=== PATIENT | female | born 1955 | race Caucasian/White ===

== ENCOUNTER 2018-09-16 07:37 | Inpatient (IN) ==
--- NOTE | 2018-09-16 08:04 | ED ---
HPI General Chief Complaint: Psychiatric Symptoms Stated Complaint: Psych eval / DBPD Time Seen by Provider: 09/16/18 07:42 Source: patient and EMS Mode of arrival: EMS Limitations: no limitations History of Present Illness HPI Narrative: Patient is a 63-year-old female, past medical history significant for thyroid disease, schizoaffective disorder, who presents after an intentional overdose. She recently lost her significant other and took approximately 10 - 50 mg Seroquel tablets approximately 1 1/2-2 hours prior to arrival in an attempt to kill herself. Police placed her on a Hernandez act and states that she was complaining of dizziness on their arrival. She denies any symptoms at this time. She denies any other coingestants. complaint: Reports suicidal ideation Onset (ago): hour(s) Duration: constant Relieving factors: none Context: Reports significant life stressor Associated psychiatric symptoms: Reports depression and suicidal ideation Associated symptoms: Reports denies other symptoms Treatments prior to arrival: Reports placed on mental health hold If self harm: admits thoughts of self harm, has acted on plan and intentional overdose Related Data Home Medications Medication Instructions Recorded Confirmed haloperidol lactate [Haldol] 5 mg BID 08/09/18 09/16/18 levothyroxine 88 mcg PO DAILY 08/09/18 09/16/18 quetiapine [Seroquel] 50 mg PO HS 08/09/18 09/16/18 Previous Rx's Medication Instructions Recorded psyllium husk [Metamucil] 1 tbsp PO DAILY #660 g 08/09/18 Allergies Allergy/AdvReac Type Severity Reaction Status Date / Time amoxicillin Allergy Mild Shortness Verified 08/09/18 08:12 of Breath Review of Systems ROS: all other systems reviewed are negative FOR[facility] Medical History Medical History Bipolar 1 disorder (Acute) Depressed affect (Acute) GERD (gastroesophageal reflux disease) (Acute) Hemorrhoids (Acute) Schizo affective schizophrenia (Acute) Thyroid disease (Acute) Surgical History Surgical History No history of previous surgery (Acute) Social History Social History Substance History: No History of Abuse Second Hand Smoke Exposure: No Smoking Status: Never smoker Tobacco Type: Cigarettes How Often Do You Have a Drink Containing Alcohol: Never Recent Travel in [facility] within the Last 8 Weeks: No Recent Out of Country Travel within the Last 8 Weeks: No Exam Narrative Exam Narrative: GENERAL: Well-appearing female in no acute distress; bug ( possibly bed bug?) found on her leg. SKIN: Focused skin assessment warm/dry. No rashes. Several large moles to back. HEAD: Atraumatic. Normocephalic. EYES: Pupils equal and round. No scleral icterus. No injection or drainage. ENT: No nasal bleeding or discharge. Mucous membranes pink and moist. NECK: Trachea midline. No JVD. CARDIOVASCULAR: Regular rate and rhythm. No murmur appreciated. Intact and equal peripheral pulses. RESPIRATORY: No accessory muscle use. Clear to auscultation. Breath sounds equal bilaterally. GASTROINTESTINAL: Abdomen soft, non-tender, nondistended. Hepatic and splenic margins not palpable. MUSCULOSKELETAL: No obvious deformities. No clubbing. No cyanosis. No edema. NEUROLOGICAL: Awake and alert. No obvious cranial nerve deficits. Motor grossly within normal limits. Normal speech. PSYCHIATRIC: Appropriate mood and affect; insight and judgment normal. Course Initial Documented Vital Signs Temperature 98.6 F 09/16/18 07:51 Pulse Rate 95 H 09/16/18 07:51 Respiratory Rate 18 09/16/18 07:51 Blood Pressure 130/70 09/16/18 07:51 Pulse Oximetry 95 09/16/18 07:51 Last Documented Vital Signs Temperature 96.6 F L 09/18/18 06:00 Pulse Rate 83 09/18/18 06:00 Respiratory Rate 18 09/18/18 06:00 Blood Pressure 139/75 09/18/18 06:00 Pulse Oximetry 95 09/18/18 06:00 Medical Decision Making [facility] Narrative Medical decision making narrative: Patient is a 63-year-old female who presents after an intentional Seroquel ingestion. She is asymptomatic on arrival and QTC was 404. EKG was repeated 2 hours later and QTC was 402. She has been kept on the monitoring analyst for 6 hours per poison control and continues to remain asymptomatic and appear well. She has been medically cleared to be seen by psychiatry. Medical Screen Exam Complete: Yes Emergency Medical Condition: Yes Differential Diagnosis Differential Diagnosis: Differential diagnosis includes but is not limited to overdose, dysrhythmia, depression. Medical Records Medical records reviewed: Yes I reviewed the patient's medical records. Lab Data Result diagrams: 09/16/18 08:09 09/17/18 05:58 Lab Results 09/16/18 09/16/18 09/16/18 Range/Units 08:09 08:09 08:09 WBC 5.4 (4.0-11.0) th/mm3 RBC 4.18 (4.00-5.30) mil/mm3 Hgb 10.9 L (11.6-15.3) gm/dL Hct 33.6 L (35.0-46.0) % MCV 80.4 (80.0-100.0) fL MCH 26.1 L (27.0-34.0) pg MCHC 32.5 (32.0-36.0) % RDW 15.1 (11.6-17.2) % Plt Count 289 (150-450) th/mm3 MPV 8.2 (7.0-11.0) fL Neut % (Auto) 78.5 H (16.0-70.0) % Lymph % (Auto) 12.5 (9.0-44.0) % [place] % (Auto) 7.0 (0.0-8.0) % Eos % (Auto) 1.5 (0.0-4.0) % Baso % (Auto) 0.5 (0.0-2.0) % Neut # (Auto) 4.2 (1.8-7.7) th/mm3 Lymph # (Auto) 0.7 L (1.0-4.8) th/mm3 [place] # (Auto) 0.4 (0.0-0.9) th/mm3 Eos # (Auto) 0.1 (0.0-0.4) th/mm3 Baso # (Auto) 0.0 (0.0-0.2) th/mm3 WBC Differential . Differential Comment Auto diff final Sodium 132 L (136-145) meq/L Potassium 3.9 (3.5-5.1) meq/L Chloride 100 (98-107) meq/L Carbon Dioxide 25.9 (21.0-32.0) meq/L Anion Gap 6 (5-15) meq/L BUN 5 L (7-18) mg/dL Creatinine 0.73 (0.50-1.00) mg/dL Estimated GFR 80 L (>89) mL/min Random Glucose 105 (74-106) mg/dL Hemoglobin A1c (4.3-6.0) % Calcium 8.3 L (8.5-10.1) mg/dL Magnesium 2.1 (1.5-2.5) mg/dL Total Bilirubin 0.2 (0.2-1.0) mg/dL AST 16 (15-37) U/L ALT 19 (10-53) U/L Alkaline Phosphatase 138 H (45-117) U/L Total Protein 6.9 (6.4-8.2) g/dL Albumin 3.2 L (3.4-5.0) g/dL Triglycerides (42-150) mg/dL Cholesterol (120-200) mg/dL LDL Cholesterol, Calc (0-99) mg/dL HDL Cholesterol (40.0-60.0) mg/dL Cholesterol/HDL Ratio Ratio TSH 2.350 (0.358-3.740) uIU/mL Salicylates Less than 1.7 L (2.8-20.0) mg/dL Acetaminophen Less than 2.0 L (10.0-30.0) mcg/mL Serum Alcohol Less than 3 (0-5) mg/dL 09/17/18 09/17/18 Range/Units 05:58 05:58 WBC (4.0-11.0) th/mm3 RBC (4.00-5.30) mil/mm3 Hgb (11.6-15.3) gm/dL Hct (35.0-46.0) % MCV (80.0-100.0) fL MCH (27.0-34.0) pg MCHC (32.0-36.0) % RDW (11.6-17.2) % Plt Count (150-450) th/mm3 MPV (7.0-11.0) fL Neut % (Auto) (16.0-70.0) % Lymph % (Auto) (9.0-44.0) % [place] % (Auto) (0.0-8.0) % Eos % (Auto) (0.0-4.0) % Baso % (Auto) (0.0-2.0) % Neut # (Auto) (1.8-7.7) th/mm3 Lymph # (Auto) (1.0-4.8) th/mm3 [place] # (Auto) (0.0-0.9) th/mm3 Eos # (Auto) (0.0-0.4) th/mm3 Baso # (Auto) (0.0-0.2) th/mm3 WBC Differential Differential Comment Sodium 133 L (136-145) meq/L Potassium 3.9 (3.5-5.1) meq/L Chloride 103 (98-107) meq/L Carbon Dioxide 23.6 (21.0-32.0) meq/L Anion Gap 6 (5-15) meq/L BUN 8 (7-18) mg/dL Creatinine 0.68 (0.50-1.00) mg/dL Estimated GFR 87 L (>89) mL/min Random Glucose 91 (74-106) mg/dL Hemoglobin A1c 5.3 (4.3-6.0) % Calcium 8.4 L (8.5-10.1) mg/dL Magnesium (1.5-2.5) mg/dL Total Bilirubin (0.2-1.0) mg/dL AST (15-37) U/L ALT (10-53) U/L Alkaline Phosphatase (45-117) U/L Total Protein (6.4-8.2) g/dL Albumin (3.4-5.0) g/dL Triglycerides 75 (42-150) mg/dL Cholesterol 155 (120-200) mg/dL LDL Cholesterol, Calc 69 (0-99) mg/dL HDL Cholesterol 71.3 H (40.0-60.0) mg/dL Cholesterol/HDL Ratio 2.17 Ratio TSH (0.358-3.740) uIU/mL Salicylates (2.8-20.0) mg/dL Acetaminophen (10.0-30.0) mcg/mL Serum Alcohol (0-5) mg/dL ECG Data EKG Prior to Arrival: No Attestation: I personally reviewed and interpreted this ECG as follows: (Sinus rhythm at a rate of [address] or T wave changes. QTC is 404.) Discharge Plan Discharge Disposition Patient Disposition: Sign Out(ED Internal Use Only) Discharge Condition Condition: Stable Discharge Order Discharge Orders: ED Use Only Admit Order (Routine); Ordered 09/16/18 Ordered By: Alexa Osorio Discharge Details Diagnosis: Suicide attempt by drug ingestion Physicians Team ED Provider: Enriqueta Hernandez Primary Care Provider: Cesar Cole Attending Provider: Robbin Sneed Other Providers: CIRA Herrmann [facility] ; Dutsin Tapia ED Status: Left Department Discharge Information Discharge Date/Time: 09/16/18 18:09
[2018-09-16 08:23] LABS: Baso % (Auto) 0.5 % (0.0-2.0); Eos # (Auto) 0.1 th/mm3 (0.0-0.4); Eos % (Auto) 1.5 % (0.0-4.0); Hematocrit 33.6 % (35.0-46.0); Hemoglobin 10.9 gm/dL (11.6-15.3); Lymph # (Auto) 0.7 th/mm3 (1.0-4.8); Lymph % (Auto) 12.5 % (9.0-44.0); Mean Corpuscular HGB Conc 32.5 % (32.0-36.0); Mean Corpuscular Hemoglobin 26.1 pg (27.0-34.0); Mean Corpuscular Volume 80.4 fL (80.0-100.0); Mean Platelet Volume 8.2 fL (7.0-11.0); Mono # (Auto) 0.4 th/mm3 (0.0-0.9); Neut # (Auto) 4.2 th/mm3 (1.8-7.7); Neut % (Auto) 78.5 % (16.0-70.0); Platelet Count 289 th/mm3 (150-450); Red Blood Count 4.18 mil/mm3 (4.00-5.30); Red Cell Distribution Width 15.1 % (11.6-17.2); White Blood Count 5.4 th/mm3 (4.0-11.0)
[2018-09-16 08:44] LABS: Alanine Aminotransferase 19 U/L (10-53); Albumin 3.2 g/dL (3.4-5.0); Anion Gap 6 meq/L (5-15); Aspartate Aminotransferase 16 U/L (15-37); Blood Urea Nitrogen 5 mg/dL (7-18); Calcium 8.3 mg/dL (8.5-10.1); Carbon Dioxide 25.9 meq/L (21.0-32.0); Chloride 100 meq/L (98-107); Glomerular Filtration Rate 80 mL/min (>89); Glucose,Random 105 mg/dL (74-106); Magnesium 2.1 mg/dL (1.5-2.5); Potassium 3.9 meq/L (3.5-5.1); Sodium 132 meq/L (136-145)
[2018-09-16 08:53] LABS: Alkaline Phosphatase 138 U/L (45-117); Total Protein 6.9 g/dL (6.4-8.2)
--- NOTE | 2018-09-16 16:03 | ECG ---
Date Performed: 09/16/2018 Time Performed: 07:51:28 PTAGE: 63 years EKG: Sinus rhythm BORDERLINE LEFT AXIS DEVIATION BORDERLINE ECG Compared to PREVIOUS TRACING , axis somewhat more leftward, otherwise no signficant change. PREVIOUS TRACIN08/09/2018 08.37 DOCTOR: Kang Luna Interpretating Date/Time 09/16/2018 16:02:17
--- NOTE | 2018-09-16 16:03 | ECG ---
Date Performed: 09/16/2018 Time Performed: 09:45:17 PTAGE: 63 years EKG: Sinus rhythm LOW QRS VOLTAGE IN PRECORDIAL LEADS BORDERLINE ECG Compared to PREVIOUS TRACING , QRS voltage somewhat smaller in precordial leads, axis no longer leftw emma. PREVIOUS TRACIN09/16/2018 07.51 DOCTOR: Kang Luna Interpretating Date/Time 09/16/2018 16:03:11
[2018-09-16] MEDS ORDERED: Acetaminophen 325 MG Tablet PO PRN (16:06)
[2018-09-16] MEDS ORDERED: Aluminum/Magnesium/Simethacone Susp 30 ML UDC PO PRN (16:06)
--- NOTE | 2018-09-16 17:16 | P.HPPSY ---
Provisional Diagnosis Admission Date: September 16, 2018 16:18 [place] I.: Major depressive disorder [place] II.: Suicide attempt Competence Certification of Person's Competence To Provide Express and Informed Consent I have personally examined Paula Palacios, a person being served at [facility] on, September 16, 2018 1714. Express and informed consent means consent voluntarily given in writing, by a competent person, after sufficient explanation and disclosure of the subject matter involved to enable the person to make a knowing and willful decision without any element of force, fraud, deceit, duress, or other form of constraint or coercion. This person is 18 years of age or older, is not now known to be incompetent to consent to treatment with a guardian advocate, and does not have a health care surrogate or proxy currently making medical treatment decisions. I have found this person to be one of the following: [] Competent to provide express and informed consent, as defined above, for voluntary admission to this facility and is competent to provide express and informed consent for treatment. He/she has the consistent capacity to make well reasoned, willful, and knowing decisions concerning his or her medical or mental health treatment. The person fully and consistently understands the purpose of the admission for examination/placement and is fully capable of personally exercising all rights assured under [place]xxx] Incompetent to provide express and informed consent to voluntary admission , and this is incompetent to provide express and informed consent to treatment. The person must be transferred to involuntary status and a petition for a guardian advocate filed with the Circuit Court. [] Refusing to provide express and informed consent to voluntary admission but is competent to provide express and informed consent for treatment. The person must be discharged or transferred to involuntary status. Form shall be completed within 24 hours of a person's arrival at the receiving facility and filed in the clinical record of each person: 1. Admitted on a voluntary basis 2. Permitted to provide express and informed consent to his/her own treatment 3. Allowed to transfer from involuntary to voluntary status 4. Prior to permitting a person to consent to his or her own treatment after having been previously found incompetent to consent to treatment. History of Present Illness Capacity: Lacks capacity Chief Complaint: Major depressive disorder. Attempted suicide by overdose History of Present Illness: This is a 63-year-old , female who presents under a police initiated Hernandez act to this facility for an attempted overdose with Seroquel. Patient is previously known to this facility but not to the psychiatric department. Reviewed electronic medical records, labs, discussed case with staff. Patient was evaluated in her room E 53. She is found lying on the bed clad in hospital gown. She is awake, alert, and oriented times self and place at least. There is no evidence of psychosis nor of es. I can elicit no delusional material. Her speech is very slightly slurred but, logical, of normal joceline and volume. She reports that she has been feeling depressed for approximately 2 weeks now. She states that she has been suffering with insomnia but reports having a good appetite, denies anhedonia, and reports having good energy level. When asked why she took an overdose of medications she responds "I was overwhelmed I guess". She reports that recently she was given a diagnosis of stage I colon cancer. She reports that her older brother from bone cancer so this has been particularly stressful to her. She also states that recently she discovered her had lost his job. She is currently denying suicidal and homicidal ideation as well as auditory or visual hallucinations. She states that she was hospitalized "a long time ago". She denies any previous history of self-harm. She states that she is treated outpatient at [facility] for schizoaffective disorder. She reports that she is typically compliant with her medications. She states that she lives at home with her ON and they have 1 grown son who does not live in the house. 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 She denies smoking cigarettes, drinking alcohol, or abusing illicit drugs. She denies owning firearms. She denies any previous admissions for rehab or detox. Her medical history is significant for hypothyroidism, GERD, and the aforementioned colon cancer. She states that her next oncology appointment with Dr. Kat is September 23. - Inpatient Certification I certify that the inpatient services were ordered in accordance with Medicare regulations governing the order. This includes certification that hospital inpatient services are reasonable and necessary and in the case of services not specified as inpatient-only under 42 CFR 419.22(n), that they are appropriately provided as inpatient services in accordance to with the 2-midnight benchmark under 43 CFR 412.3(e) I certify that inpatient psychiatric hospital services are medically necessary. Evaluation and treatment and/or diagnostic testing are expected to improve the patient's condition. The patient needs on a daily basis, active treatment furnished directly by or requiring the supervision of inpatient psychiatric facility personnel. Estimated Total Length of Stay (Days): 7 Plans for Post Hospital Care: Home Review of Systems All other systems reviewed negative except as stated in HPI [facility] - History History Provided By: Patient - Medical History Medical History: Medical History (Last Reviewed 09/16/18 @ 17:21 by JIM Leblanc) Bipolar 1 disorder Depressed affect GERD (gastroesophageal reflux disease) Hemorrhoids Schizo affective schizophrenia Thyroid disease - Surgical History Surgical History: Surgical History (Last Reviewed 09/16/18 @ 17:21 by JIM Leblanc) No history of previous surgery - Tobacco History Second Hand Smoke Exposure: No Tobacco Use In Past 30 Days: No Smoking Status: Never smoker Tobacco Type: Cigarettes - Alcohol History How Often Do You Have a Drink Containing Alcohol: Monthly or less - Substance Use History Substance History: No History of Abuse - Travel History Recent Travel in the [place] Within the Last 8 Weeks: No Recent Travel Out of the Country Within the Last 8 Weeks: No - Immunization History Tetanus Immunization: Unsure Quality Measures - Psychiatric History Psychological trauma history: Denies Violence risk to others in the last 6 months: Denies Violence risk to self in the last 6 months: Denies - Substance Abuse History Drug or alcohol use in the past 12 months: Denies - Patient Strengths Patient's strengths (minimum of 2): Patient apparently has a strong report system in her family and seems fairly shocked at her own actions. Medications and Allergies Active Medications: Active Medications Acetaminophen (Tylenol) 650 mg PO Q4H PRN PRN Reason: Pain 1-5 or Temp >101F Al Hydrox/Mg Hydrox/Simethicone (Mag-Al Plus Susp Liq) 30 ml PO Q6H PRN PRN Reason: DYSPEPSIA Al Hydroxide/Mg Hydroxide (Milk Of Magnesia Liq) 30 ml PO Q12H PRN PRN Reason: Mild Constipation Allergies Allergy/AdvReac Type Severity Reaction Status Date / Time amoxicillin Allergy Mild Shortness Verified 08/09/18 08:12 of Breath Home Medications Medication Instructions Recorded Confirmed Type haloperidol lactate [Haldol] 5 mg BID 08/09/18 09/16/18 History levothyroxine 88 mcg PO DAILY 08/09/18 09/16/18 History quetiapine [Seroquel] 50 mg PO HS 08/09/18 09/16/18 History Results - Labs CBC & Chem 7: 09/16/18 08:09 09/16/18 08:09 Labs: Laboratory Results - last 24 hr 09/16/18 09/16/18 09/16/18 08:09 08:09 08:09 WBC 5.4 RBC 4.18 Hgb 10.9 L Hct 33.6 L MCV 80.4 MCH 26.1 L MCHC 32.5 RDW 15.1 Plt Count 289 MPV 8.2 Neut % (Auto) 78.5 H Lymph % (Auto) 12.5 [place] % (Auto) 7.0 Eos % (Auto) 1.5 Baso % (Auto) 0.5 Neut # (Auto) 4.2 Lymph # (Auto) 0.7 L [place] # (Auto) 0.4 Eos # (Auto) 0.1 Baso # (Auto) 0.0 WBC Differential . Differential Comment Auto diff final Sodium 132 L Potassium 3.9 Chloride 100 Carbon Dioxide 25.9 Anion Gap 6 BUN 5 L Creatinine 0.73 Estimated GFR 80 L Random Glucose 105 Calcium 8.3 L Magnesium 2.1 Total Bilirubin 0.2 AST 16 ALT 19 Alkaline Phosphatase 138 H Total Protein 6.9 Albumin 3.2 L TSH 2.350 Salicylates Less than 1.7 L Acetaminophen Less than 2.0 L Serum Alcohol Less than 3 Exam Vital signs: Vital Signs 09/16/18 07:51 09/16/18 11:00 09/16/18 14:01 Temperature 98.6 F 98.5 F 98.6 F Pulse Rate 95 H 85 93 H Respiratory Rate 18 18 18 Blood Pressure 130/70 125/66 119/78 Pulse Oximetry 95 94 L 96 Intake & Output 09/15/18 09/16/18 09/16/18 18:59 06:59 18:59 Weight 192 lb - Constitutional no acute distress, mild distress - Routine HEENT Exam Head: Present: normocephalic, atraumatic - Routine Neurological Exam Present: alert, oriented X3 - Routine Psychiatric Exam Present: suicidal ideation, depressed Mental Status Examination Appearance: Disheveled Consciousness: Alert Orientation: Person, Place (At least) Motor Activity: Other (In bed) Speech: Unremarkable (A little slurred) Language: Adequate Fund of Knowledge: Inadequate Attention and Concentration: Adequate Memory: Unremarkable Mood: Sad Affect: Sad Thought Process & Associations: Intact, Logical Thought Content: Appropriate Hallucination Type: None Delusion Type: None Suicidal Ideation: No (Currently is denying) Suicidal Plan: No Suicidal Intention: No Homicidal Ideation: No Homicidal Plan: No Homicidal Intention: No Insight: Fair Judgment: Impulsive Assessment and Plan - Assessment (1) Major depressive disorder Code(s): F32.9 - Major depressive disorder, single episode, unspecified Status : Acute - Plan Plan: Estimated LOS: [7] days given that this patient admits to taking an overdose of Seroquel in an attempt to end her life combined with her recent cancer diagnosis and her 's loss of job I am admitting her to a locked psychiatric inpatient unit for further evaluation and treatment as deemed necessary. Due to her Seroquel overdose I will not be initiating any psychotropics at this time. Justification for Continued Inpatient Stay: Moving this patient to a less restrictive environment would likely result in decompensation. (1) Major depressive disorder Qualifiers: Major depression recurrence: recurrent Active/Remission status: currently active Major depression episode severity: moderate Qualified Code(s): F33.1 - Major depressive disorder, recurrent, moderate
[2018-09-17 07:02] LABS: Calcium 8.4 mg/dL (8.5-10.1); Carbon Dioxide 23.6 meq/L (21.0-32.0); Potassium 3.9 meq/L (3.5-5.1)
[2018-09-17 07:05] LABS: Chol/HDL Ratio 2.17 Ratio; HDL Cholesterol 71.3 mg/dL (40.0-60.0)
[2018-09-17 11:37] LABS: Hemoglobin A1c 5.3 % (4.3-6.0)
[2018-09-17] MEDS: Melatonin 5 MG Tablet PO PRN (20:31)
--- NOTE | 2018-09-18 14:11 | P.PNPSY ---
Subjective Chief Complaint: Major depressive disorder. Attempted suicide by overdose Remarks: Patient was seen and case discussed with nursing. There does not appear to be a note from yesterday. An H&P was completed on September 16 and patient was made involuntary in the computer but no involuntary paperwork was filled out. Patient had a suicide attempt Via Seroquel. Patient remains depressed but minimizes her attempts. At this time she denies suicidal or homicidal ideation intent or plan. She is on precautions for bed bugs. Thought processes disorganized but no specific delusions were elicited Review of Systems All other systems reviewed negative except as stated in HPI Mental Status Examination Appearance: Disheveled Consciousness: Alert Orientation: Person, Place (At least) Motor Activity: Other (In bed) Speech: Unremarkable (A little slurred) Language: Adequate Fund of Knowledge: Inadequate Attention and Concentration: Adequate Memory: Unremarkable Mood: Sad Affect: Sad Thought Process & Associations: Disorganized Thought Content: Appropriate Hallucination Type: None Delusion Type: None Suicidal Ideation: No (Currently is denying) Suicidal Plan: No Suicidal Intention: No Homicidal Ideation: No Homicidal Plan: No Homicidal Intention: No Insight: Fair Judgment: Impulsive Assessment and Plan - Assessment (1) Schizophrenia, unspecified Code(s): F20.9 - Schizophrenia, unspecified Status: Acute - Plan Plan: Initial petition completed, consult placed for second opinion, was called and there was no answer Justification for Continued Inpatient Stay: Patient would decompensate in a less restrictive setting
[2018-09-18] MEDS: Haloperidol 5 MG Tablet PO SCH (22:15)
[2018-09-18] MEDS: Melatonin 5 MG Tablet PO PRN (22:15)
[2018-09-18] MEDS: traZODone 50 MG Tablet PO SCH (22:16)
[2018-09-19] MEDS: Haloperidol 5 MG Tablet PO SCH ×2 (09:10→20:52)
--- NOTE | 2018-09-19 16:27 | P.PNPSY ---
Subjective Chief Complaint: Major depressive disorder. Attempted suicide by overdose Remarks: Patient seen for follow-up, and a second opinion; chart reviewed, patient discussed with nursing staff, we reviewed the patient's mood, thoughts, and behaviors from overnight and this morning. Nurse reports the patient has been calm and cooperative with care and denies suicidal or homicidal ideations and denies auditory or visual hallucinations. The patient was seen at bedside this afternoon by psychiatry and was pleasant with interview. She adamantly denies recent suicidal behavior. She reports that she had claimed she took an overdose of the Seroquel but is now reporting that she lied in order to get attention for the anxiety she was experiencing. She reports having a very good visit with her today and he is supportive and not angry with her for recent behavior. Patient expressed positive motivation to return home so that she can be with family over the holidays. Patient expressed sincere motivation to continue her outpatient psychiatric care and follow-up with [facility]. The patient's spouse was seen during visitation hours and his 's condition discussed. Patient spouse reports that he is not concerned over recent threats of suicide and he would like her discharged home tonight. He expressed sincere motivation to ensure that she follows up with her outpatient provider and continues her outpatient medications. Patient spouse was informed that this late in the day a safe discharge had not yet been coordinated his will be reevaluated tomorrow morning and discharge considered at that time. Review of Systems All other systems reviewed negative except as stated in HPI Mental Status Examination Appearance: Appropriate Consciousness: Alert Orientation: x4 Motor Activity: Other (In bed) Speech: Unremarkable (A little slurred) Language: Adequate Fund of Knowledge: Adequate Attention and Concentration: Adequate Memory: Unremarkable Mood: Appropriate Affect: Appropriate Thought Process & Associations: Intact, Logical, Goal directed Thought Content: Appropriate Hallucination Type: None Delusion Type: None Suicidal Ideation: No (Currently is denying) Suicidal Plan: No Suicidal Intention: No Homicidal Ideation: No Homicidal Plan: No Homicidal Intention: No Insight: Fair Judgment: Impulsive Assessment and Plan - Assessment (1) Schizophrenia, unspecified Code(s): F20.9 - Schizophrenia, unspecified Status: Acute - Plan Plan: 09/18/2018 : initial petition completed, consult placed for second opinion, was called and there was no answer 09/19/2018: Good response to treatment, the patient's mood has been stable over the last 48 hours with no reports of auditory or visual hallucinations. The patient's thought processes were normal today with no signs of disorganization. Brief family meeting done with spouse at bedside during visiting hours and he is supportive of her discharge home and corroborates the patient's reports of making suicidal threats but not actually following through suicide attempt. The patient and spouse expressed sincere motivation to adhere to outpatient plans. Continue inpatient stabilization and treatment plan, working towards a safe discharge. There is no evidence on today's exam to suggest the patient is a substantial risk of self-harm if discharged to the care of her spouse therefore the second opinion for Hernandez act order 32 will not be placed. Recommend that patient be considered for voluntary status and anticipated for discharge tomorrow if she remains stable overnight. Justification for Continued Inpatient Stay: Patient remains an elevated risk for self-harm by self neglect and will require further inpatient stabilization and preparation of a safe discharge plan. Moving patient to a less restrictive environment at this time may result in decompensation.
[2018-09-19] MEDS: traZODone 50 MG Tablet PO SCH (20:52)
[2018-09-20 06:37] VITALS: BP 116/68; PULSE 96; RESP 18; TEMP 96.5; O2SAT 97
[2018-09-20] MEDS: Haloperidol 5 MG Tablet PO SCH (08:51)
--- NOTE | 2018-09-20 11:03 | P.DSPSY ---
Psychiatry Discharge Summary Inpatient Psychiatric care?: Yes Advance Directives: No Mental Health Advance Directive: No Health Care Proxy: No - Admission Admission Date: September 16, 2018 16:18 - Admission Diagnosis (1) Schizophrenia, unspecified Code(s): F20.9 - Schizophrenia, unspecified Brief History: This is a 63-year-old , female who presents under a police initiated Hernandez act to this facility for an attempted overdose with Seroquel. Patient is previously known to this facility but not to the psychiatric department. Reviewed electronic medical records, labs, discussed case with staff. Patient was evaluated in her room E 53. She is found lying on the bed clad in hospital gown. She is awake, alert, and oriented times self and place at least. There is no evidence of psychosis nor of es. I can elicit no delusional material. Her speech is very slightly slurred but, logical, of normal joceline and volume. She reports that she has been feeling depressed for approximately 2 weeks now. She states that she has been suffering with insomnia but reports having a good appetite, denies anhedonia, and reports having good energy level. When asked why she took an overdose of medications she responds "I was overwhelmed I guess". She reports that recently she was given a diagnosis of stage I colon cancer. She reports that her older brother from bone cancer so this has been particularly stressful to her. She also states that recently she discovered her had lost his job. She is currently denying suicidal and homicidal ideation as well as auditory or visual hallucinations. She states that she was hospitalized "a long time ago". She denies any previous history of self-harm. She states that she is treated outpatient at [facility] for schizoaffective disorder. She reports that she is typically compliant with her medications. She states that she lives at home with her ON and they have 1 grown son who does not live in the house. She states that she is a [id number] mom and . She denies smoking cigarettes, drinking alcohol, or abusing illicit drugs. She denies owning firearms. She denies any previous admissions for rehab or detox. Her medical history is significant for hypothyroidism, GERD, and the aforementioned colon cancer. She states that her next oncology appointment with Dr. Kat is September 23. Tobacco Use In Past 30 Days: No How Often Do You Have a Drink Containing Alcohol: Never Hospital Course: Hospital course: Patient was admitted to a locked, inpatient psychiatric unit. Appropriate precautions were in place throughout patient's hospital stay. Patient was seen and examined on the unit by psychiatry and also visited by counselor. Psychotropic medications were adjusted. There was a good response to treatment noted by nursing and provider observations, and the patient reported improvements in mood, anxiety, and there was no evidence of any suicidality or homicidality at time of discharge. Discharge and safety planning discussed with spouse. Psychiatric follow-up as arranged by counselor. Patient is also to follow up with primary care. I have counseled the patient to abstain from substances of abuse including cannabis and have counseled patient to return to the psychiatric emergency room for any concerning symptoms as part of a general safety plan. - Discharge Discharge Date: 09/20/18 - Discharge Diagnosis (1) Schizophrenia, unspecified Code(s): F20.9 - Schizophrenia, unspecified Status: Acute Discharge Disposition: Home - Discharge Instructions Discharge Diet: Regular Diet - Discharge Time > 30 minutes Mental Status Examination Appearance: Appropriate Consciousness: Alert Orientation: x4 Motor Activity: Other (In bed) Speech: Unremarkable (A little slurred) Language: Adequate Fund of Knowledge: Adequate Attention and Concentration: Adequate Memory: Unremarkable Mood: Appropriate Affect: Appropriate Thought Process & Associations: Intact, Logical, Goal directed Thought Content: Appropriate Hallucination Type: None Delusion Type: None Suicidal Ideation: No (Currently is denying) Suicidal Plan: No Suicidal Intention: No Homicidal Ideation: No Homicidal Plan: No Homicidal Intention: No Insight: Fair Judgment: Impulsive Discharge/Advance Care Plan - Results Vital Signs: Last Vital Signs Temp 96.5 F L 09/20/18 06:00 Pulse 96 H 09/20/18 06:00 Resp 18 09/20/18 06:00 BP 116/68 09/20/18 06:00 Pulse Ox 97 09/20/18 06:00 Lab Results: Laboratory Results Hemoglobin A1c 5.3 % (4.3-6.0) 09/17/18 05:58 Triglycerides 75 mg/dL (42-150) 09/17/18 05:58 Cholesterol 155 mg/dL (120-200) 09/17/18 05:58 LDL Cholesterol, Calc 69 mg/dL (0-99) 09/17/18 05:58 HDL Cholesterol 71.3 mg/dL (40.0-60.0) H 09/17/18 05:58 TSH 2.350 uIU/mL (0.358-3.740) 09/16/18 08:09 Summary of Procedures: None ordered Pending Results: None - Medications Number of antipsychotic medications at discharge: 1 - Discharge Care Plan Goals to Promote Your Health: * To prevent worsening of your condition and complications * To maintain your health at the optimal level Directions to Meet Your Goals: Take your medications as prescribed Follow your dietary instruction Follow activity as directed Keep your appointments as scheduled Take your immunizations and boosters as scheduled If your symptoms worsen call your PCP, if no PCP go to Urgent Care Center or Emergency Room For 20/04 questions related to your inpatient stay or results of tests pending at discharge, please contact Dr. Dustin Tapia MD at Smoking is Dangerous to Your Health. Avoid second hand smoking
== END 2018-09-20 12:50 | disposition home or self-care (01) ==
LOC: NEPE 07:37 → NEDA 16:18 → H250 17:54 → H4EA 09-17 01:00
PROVIDERS: ADMIT Psychiatry & Neurology Psychiatry; ATTEND Psychiatry & Neurology Psychiatry

== ENCOUNTER 2018-10-05 07:47 | Inpatient (IN) ==
--- NOTE | 2018-10-05 08:08 | ED ---
HPI General Chief Complaint: Overdose Stated Complaint: medical Time Seen by Provider: 10/05/18 07:54 Source: patient Mode of arrival: ambulatory Limitations: no limitations History of Present Illness HPI Narrative: Patient is a 63 year old female with history of depression, bipolar disorder, schizoaffective schizophrenia, presents the emergency room under a Hernandez act. Patient reports that she was depressed as she has financial difficulties, she is also recently diagnosed with colon cancer, reports that she took 10 of her 5 mg Seroquel pills around 7 AM in attempt to commit suicide. After she took the medications in attempt to overdose, she called PD for help. Related Data Home Medications Medication Instructions Recorded Confirmed levothyroxine 88 mcg PO DAILY 08/09/18 10/05/18 buspirone 10 mg PO BID 10/05/18 10/05/18 quetiapine [Seroquel] 50 mg PO BID 10/05/18 10/05/18 Previous Rx's Medication Instructions Recorded haloperidol 5 mg PO BID #7 tab 09/20/18 Allergies Allergy/AdvReac Type Severity Reaction Status Date / Time amoxicillin Allergy Mild Shortness Verified 10/05/18 07:56 of Breath Review of Systems ROS: all other systems reviewed are negative [facility] Medical History Medical History Bipolar 1 disorder (Acute) Depressed affect (Acute) GERD (gastroesophageal reflux disease) (Acute) Hemorrhoids (Acute) Schizo affective schizophrenia (Acute) Thyroid disease (Acute) Surgical History Surgical History No history of previous surgery (Acute) Social History Social History Substance History: No History of Abuse Second Hand Smoke Exposure: No Smoking Status: Never smoker Tobacco Type: Cigarettes How Often Do You Have a Drink Containing Alcohol: Never Recent Travel in [place] within the Last 8 Weeks: No Recent Out of Country Travel within the Last 8 Weeks: No Immunization History Tetanus Immunization: <5 Years Exam Narrative Exam Narrative: GENERAL: NAD SKIN: Focused skin assessment warm/dry. HEAD: Atraumatic. Normocephalic. EYES: Pupils equal and round. No scleral icterus. No injection or drainage. ENT: No nasal bleeding or discharge. Mucous membranes pink and moist. NECK: Trachea midline. No JVD. CARDIOVASCULAR: Regular rate and rhythm. No murmur appreciated. RESPIRATORY: No accessory muscle use. Clear to auscultation. Breath sounds equal bilaterally. GASTROINTESTINAL: Abdomen soft, non-tender, nondistended. Hepatic and splenic margins not palpable. MUSCULOSKELETAL: No obvious deformities. No clubbing. No cyanosis. No edema. NEUROLOGICAL: Awake and alert. No obvious cranial nerve deficits. Motor grossly within normal limits. Normal speech. PSYCHIATRIC: Depressed mood and affect; +SI -HI Course Initial Documented Vital Signs Pulse Rate 113 H 10/05/18 08:03 Respiratory Rate 21 10/05/18 08:03 Blood Pressure 103/66 10/05/18 08:03 Pulse Oximetry 95 10/05/18 08:03 Last Documented Vital Signs Temperature 97.7 F 10/05/18 08:14 Pulse Rate 94 H 10/05/18 12:21 Respiratory Rate 17 10/05/18 12:21 Blood Pressure 148/72 H 10/05/18 12:21 Pulse Oximetry 98 10/05/18 12:21 Medical Decision Making MDM Narrative Medical decision making narrative: During the course of the patients emergency department visit, the patients history, examination, and differential diagnosis were reviewed with the patient. The patient was placed on a classroom monitor with oximetry and frequent blood pressure monitoring. The patient had an IV access obtained and blood work sent for analysis. The patient was initially provided IVF Medical Screen Exam Complete: Yes Emergency Medical Condition: Yes Differential Diagnosis Differential Diagnosis: depression, schizophrenia, bipolar disorder Medical Records Medical records reviewed: Yes I reviewed the patient's medical records. Lab Data Result diagrams: 10/05/18 08:04 10/05/18 08:04 Lab Results 10/05/18 10/05/18 10/05/18 Range/Units 08:04 08:04 08:04 WBC 4.9 (4.0-11.0) th/mm3 RBC 3.99 L (4.00-5.30) mil/mm3 Hgb 10.6 L (11.6-15.3) gm/dL Hct 31.8 L (35.0-46.0) % MCV 79.9 L (80.0-100.0) fL MCH 26.6 L (27.0-34.0) pg MCHC 33.3 (32.0-36.0) % RDW 15.6 (11.6-17.2) % Plt Count 256 (150-450) th/mm3 MPV 7.9 (7.0-11.0) fL Neut % (Auto) 75.9 H (16.0-70.0) % Lymph % (Auto) 12.1 (9.0-44.0) % [place] % (Auto) 9.3 H (0.0-8.0) % Eos % (Auto) 2.3 (0.0-4.0) % Baso % (Auto) 0.4 (0.0-2.0) % Neut # (Auto) 3.7 (1.8-7.7) th/mm3 Lymph # (Auto) 0.6 L (1.0-4.8) th/mm3 [place] # (Auto) 0.5 (0.0-0.9) th/mm3 Eos # (Auto) 0.1 (0.0-0.4) th/mm3 Baso # (Auto) 0.0 (0.0-0.2) th/mm3 WBC Differential . Differential Comment Auto diff final Sodium 133 L (136-145) meq/L Potassium 3.1 L (3.5-5.1) meq/L Chloride 100 (98-107) meq/L Carbon Dioxide 22.7 (21.0-32.0) meq/L Anion Gap 10 (5-15) meq/L BUN 5 L (7-18) mg/dL Creatinine 0.49 L (0.50-1.00) mg/dL Estimated GFR Greater than 89 (>89) mL/min Random Glucose 118 H (74-106) mg/dL Calcium 8.6 (8.5-10.1) mg/dL Magnesium 1.8 (1.5-2.5) mg/dL Total Bilirubin 0.5 (0.2-1.0) mg/dL AST 18 (15-37) U/L ALT 15 (10-53) U/L Alkaline Phosphatase 123 H (45-117) U/L Total Protein 6.5 (6.4-8.2) g/dL Albumin 3.0 L (3.4-5.0) g/dL TSH 2.120 (0.358-3.740) uIU/mL Salicylates Less than 1.7 L (2.8-20.0) mg/dL Urine Opiates Screen (Neg) Acetaminophen 2.2 L (10.0-30.0) mcg/mL Ur Barbiturates Screen (Neg) Ur Amphetamines Screen (Neg) U Benzodiazepines Scrn (Neg) Urine Cocaine Screen (Neg) U Cannabinoids Screen (Neg) Serum Alcohol Less than 3 (0-5) mg/dL 10/05/18 Range/Units 09:22 WBC (4.0-11.0) th/mm3 RBC (4.00-5.30) mil/mm3 Hgb (11.6-15.3) gm/dL Hct (35.0-46.0) % MCV (80.0-100.0) fL MCH (27.0-34.0) pg MCHC (32.0-36.0) % RDW (11.6-17.2) % Plt Count (150-450) th/mm3 MPV (7.0-11.0) fL Neut % (Auto) (16.0-70.0) % Lymph % (Auto) (9.0-44.0) % [place] % (Auto) (0.0-8.0) % Eos % (Auto) (0.0-4.0) % Baso % (Auto) (0.0-2.0) % Neut # (Auto) (1.8-7.7) th/mm3 Lymph # (Auto) (1.0-4.8) th/mm3 [place] # (Auto) (0.0-0.9) th/mm3 Eos # (Auto) (0.0-0.4) th/mm3 Baso # (Auto) (0.0-0.2) th/mm3 WBC Differential Differential Comment Sodium (136-145) meq/L Potassium (3.5-5.1) meq/L Chloride (98-107) meq/L Carbon Dioxide (21.0-32.0) meq/L Anion Gap (5-15) meq/L BUN (7-18) mg/dL Creatinine (0.50-1.00) mg/dL Estimated GFR (>89) mL/min Random Glucose (74-106) mg/dL Calcium (8.5-10.1) mg/dL Magnesium (1.5-2.5) mg/dL Total Bilirubin (0.2-1.0) mg/dL AST (15-37) U/L ALT (10-53) U/L Alkaline Phosphatase (45-117) U/L Total Protein (6.4-8.2) g/dL Albumin (3.4-5.0) g/dL TSH (0.358-3.740) uIU/mL Salicylates (2.8-20.0) mg/dL Urine Opiates Screen Neg (Neg) Acetaminophen (10.0-30.0) mcg/mL Ur Barbiturates Screen Neg (Neg) Ur Amphetamines Screen Neg (Neg) U Benzodiazepines Scrn Neg (Neg) Urine Cocaine Screen Neg (Neg) U Cannabinoids Screen Neg (Neg) Serum Alcohol (0-5) mg/dL ECG Data EKG Prior to Arrival: No Attestation: I personally reviewed and interpreted this ECG as follows: Interpretation: EKG at 0808: Sinus tach at 112bpm, qt/qtc: 352/418, no acute st or t wave changes Discharge Plan Discharge Disposition Patient Disposition: ED Admit(ED Internal Use Only) Discharge Condition Condition: Stable Discharge Order Discharge Orders: ED Use Only Admit Order (Routine); Ordered 10/05/18 Ordered By: Ronnie Ross Discharge Details Diagnosis: Suicide attempt by drug ingestion, Major depressive disorder, Schizophrenia, unspecified Physicians Team ED Provider: Tricia Quinn Primary Care Provider: Cesar Cole Attending Provider: Ronnie Ross Other Providers: Dustin Tapia Discharge Interventions Interventions: Vital Signs Last Done: 10/05/18 12:21 ED Discharge Assessment Last Done: 10/05/18 15:46 Status ED Status: Admitted Patient
[2018-10-05] MEDS ORDERED: Sod Chloride 0.9% Inj 1,000 ML IV.SIG SCH ×2 (08:15→09:30)
[2018-10-05 08:23] LABS: Baso % (Auto) 0.4 % (0.0-2.0); Eos # (Auto) 0.1 th/mm3 (0.0-0.4); Eos % (Auto) 2.3 % (0.0-4.0); Hematocrit 31.8 % (35.0-46.0); Hemoglobin 10.6 gm/dL (11.6-15.3); Lymph # (Auto) 0.6 th/mm3 (1.0-4.8); Lymph % (Auto) 12.1 % (9.0-44.0); Mean Corpuscular HGB Conc 33.3 % (32.0-36.0); Mean Corpuscular Hemoglobin 26.6 pg (27.0-34.0); Mean Corpuscular Volume 79.9 fL (80.0-100.0); Mean Platelet Volume 7.9 fL (7.0-11.0); Mono # (Auto) 0.5 th/mm3 (0.0-0.9); Mono % (Auto) 9.3 % (0.0-8.0); Neut # (Auto) 3.7 th/mm3 (1.8-7.7); Neut % (Auto) 75.9 % (16.0-70.0); Platelet Count 256 th/mm3 (150-450); Red Blood Count 3.99 mil/mm3 (4.00-5.30); Red Cell Distribution Width 15.6 % (11.6-17.2); White Blood Count 4.9 th/mm3 (4.0-11.0)
[2018-10-05 08:36] LABS: Alanine Aminotransferase 15 U/L (10-53); Anion Gap 10 meq/L (5-15); Aspartate Aminotransferase 18 U/L (15-37); Blood Urea Nitrogen 5 mg/dL (7-18); Calcium 8.6 mg/dL (8.5-10.1); Carbon Dioxide 22.7 meq/L (21.0-32.0); Chloride 100 meq/L (98-107); Glomerular Filtration Rate Greater Than 89 mL/min (>89); Glucose,Random 118 mg/dL (74-106); Magnesium 1.8 mg/dL (1.5-2.5); Potassium 3.1 meq/L (3.5-5.1); Sodium 133 meq/L (136-145)
[2018-10-05 08:45] LABS: Acetaminophen 2.2 mcg/mL (10.0-30.0); Alkaline Phosphatase 123 U/L (45-117); Total Protein 6.5 g/dL (6.4-8.2)
[2018-10-05 10:16] LABS: Amphetamine Screen,Urine Neg (Neg); Barbiturate Screen,Urine Neg (Neg); Cannabinoid Screen,Urine Neg (Neg); Cocaine Screen,Urine Neg (Neg); Opiate Screen,Urine Neg (Neg)
--- NOTE | 2018-10-05 10:43 | P.HPPSY ---
Provisional Diagnosis Admission Date: October 05, 2018 07:47 History of Present Illness Capacity: Lacks capacity History of Present Illness: The patient is a 63 y/o woman with a psychiatric history of schizophrenia and bipolar disorder, a medical history of hypothyroidism and colon cancer, domiciled in [place] with her in an apartment, has 1 older kid, is unemployed, has had 2 previous suicide attempts, 8 previous psychiatric admissions, has an outpatient psychiatrist, and is treated with Seroquel and Haldol for schizophrenia. She was recently diagnosed with colon cancer and has been experiencing additional financial stress which has caused her to feel overwhelmed over the past month. She states that recently she has begun to have auditory hallucinations that are telling her "everyone in the world is evil" which have been making her feel stressed out and upset. This morning around 5am she decided to take 10 Seroquel pills to try and overdose because of feeling overwhelmed. Her called an ambulance which took her to the ED for treatment. She denies taking anything besides the Seroquel and says that she has been compliant with her medications. She is currently denying suicidal or homicidal ideations and says "I just feel very calm and tired". She says she has had trouble sleeping and low energy but has maintained a good appetite and interest in activities with her . On psychiatric evaluation she appears to be disorganized and disinterested in conversation, she appears very tired and speaks slowly with effort. She began to cry at one point when discussing how she was feeling and wanted to see her . - Jame: [phone] Psychiatric history: diagnosed with schizophrenia and bipolar disorder, treated with Haldol and Seroquel, she was recently admitted at [facility] and has 7 other previous admissions overall, she has attempted suicide 2 previous times with pills. Medical History:hypothyroidism, colon cancer, GERD Medications: levothyroxine 88micrograms, PO Daily, Haloperidol 5mg PO BID, Seroquel PO Daily Social History: The patient is not employed and relies on her for support. They live together in an apartment and have a grown son that does not live in town. Her highest level of education is college an she denies ever being incarcerated. Substance History: She denies using any tobacco, recreational drugs, or alcohol. REPLACED BY [facility] - History History Provided By: Patient - Medical History Medical History: Medical History (Last Reviewed 10/05/18 @ 08:10 by Tricia Quinn) Bipolar 1 disorder Depressed affect GERD (gastroesophageal reflux disease) Hemorrhoids Schizo affective schizophrenia Thyroid disease - Surgical History Surgical History: Surgical History (Last Reviewed 10/05/18 @ 08:10 by Tricia Quinn) No history of previous surgery - Tobacco History Second Hand Smoke Exposure: No Smoking Status: Never smoker Tobacco Type: Cigarettes - Alcohol History How Often Do You Have a Drink Containing Alcohol: Never - Substance Use History Substance History: No History of Abuse - Travel History Recent Travel in the [place] Within the Last 8 Weeks: No Recent Travel Out of the Country Within the Last 8 Weeks: No - Immunization History Tetanus Immunization: <5 Years Medications and Allergies Allergies Allergy/AdvReac Type Severity Reaction Status Date / Time amoxicillin Allergy Mild Shortness Verified 10/05/18 07:56 of Breath Home Medications Medication Instructions Recorded Confirmed Type levothyroxine 88 mcg PO DAILY 08/09/18 10/05/18 History buspirone 10 mg PO BID 10/05/18 10/05/18 History quetiapine [Seroquel] 50 mg PO BID 10/05/18 10/05/18 History Results - Labs CBC & Chem 7: 10/05/18 08:04 10/05/18 08:04 Labs: Laboratory Results - last 24 hr 10/05/18 10/05/18 10/05/18 08:04 08:04 08:04 WBC 4.9 RBC 3.99 L Hgb 10.6 L Hct 31.8 L MCV 79.9 L MCH 26.6 L MCHC 33.3 RDW 15.6 Plt Count 256 MPV 7.9 Neut % (Auto) 75.9 H Lymph % (Auto) 12.1 [place] % (Auto) 9.3 H Eos % (Auto) 2.3 Baso % (Auto) 0.4 Neut # (Auto) 3.7 Lymph # (Auto) 0.6 L [place] # (Auto) 0.5 Eos # (Auto) 0.1 Baso # (Auto) 0.0 WBC Differential . Differential Comment Auto diff final Sodium 133 L Potassium 3.1 L Chloride 100 Carbon Dioxide 22.7 Anion Gap 10 BUN 5 L Creatinine 0.49 L Estimated GFR Greater than 89 Random Glucose 118 H Calcium 8.6 Magnesium 1.8 Total Bilirubin 0.5 AST 18 ALT 15 Alkaline Phosphatase 123 H Total Protein 6.5 Albumin 3.0 L TSH 2.120 Salicylates Less than 1.7 L Urine Opiates Screen Acetaminophen 2.2 L Ur Barbiturates Screen Ur Amphetamines Screen U Benzodiazepines Scrn Urine Cocaine Screen U Cannabinoids Screen Serum Alcohol Less than 3 10/05/18 09:22 WBC RBC Hgb Hct MCV MCH MCHC RDW Plt Count MPV Neut % (Auto) Lymph % (Auto) [place] % (Auto) Eos % (Auto) Baso % (Auto) Neut # (Auto) Lymph # (Auto) [place] # (Auto) Eos # (Auto) Baso # (Auto) WBC Differential Differential Comment Sodium Potassium Chloride Carbon Dioxide Anion Gap BUN Creatinine Estimated GFR Random Glucose Calcium Magnesium Total Bilirubin AST ALT Alkaline Phosphatase Total Protein Albumin TSH Salicylates Urine Opiates Screen Neg Acetaminophen Ur Barbiturates Screen Neg Ur Amphetamines Screen Neg U Benzodiazepines Scrn Neg Urine Cocaine Screen Neg U Cannabinoids Screen Neg Serum Alcohol Exam Vital signs: Vital Signs 10/05/18 08:03 10/05/18 08:14 10/05/18 08:54 Temperature 97.7 F Pulse Rate 113 H 120 H Respiratory Rate 21 21 Blood Pressure 103/66 153/65 H Pulse Oximetry 95 95 10/05/18 09:41 10/05/18 10:40 Temperature Pulse Rate 100 H 96 H Respiratory Rate 14 18 Blood Pressure 140/72 142/77 H Pulse Oximetry 95 98 Intake & Output 10/04/18 10/05/18 10/05/18 18:59 06:59 18:59 Intake Total 1999 Balance 1999 Weight 87.09 kg Intake: IV 1999 NS Inj 1,000 ML @ 1000 mls/hr 1999 IV.SIG BOLUS SARAH Rx#:[id number] Mental Status Examination Appearance: Disheveled Consciousness: Alert Orientation: x4 Motor Activity: Normal gait Speech: Slow Language: Adequate Fund of Knowledge: Adequate Attention and Concentration: Adequate Memory: Unremarkable Mood: Sad Affect: Sad Thought Process & Associations: Disorganized Thought Content: Appropriate Hallucination Type: Visual Delusion Type: None Suicidal Ideation: No Suicidal Plan: No Suicidal Intention: No Homicidal Ideation: No Homicidal Plan: No Homicidal Intention: No Insight: Poor Judgment: Poor Assessment and Plan - Plan Plan: The patient is a 63 y/o woman with a psychiatric history of schizophrenia and bipolar disorder, a medical history of hypothyroidism and colon cancer, has had 2 previous suicide attempts, 8 previous psychiatric admissions, has an outpatient psychiatrist, and is treated with Seroquel and Haloperidol for schizophrenia. This morning she was hearing voices which contributed to her feeling overwhelmed and she decided to try and commit suicide by taking 10 of her Seroquel pills. Her found her and called 911 and she was medically treated and cleared in the ED. She no longer feels suicidal but feels very tired and sick of the voices she is hearing. The patient was disorganized and depressed on exam. The patient has many life stressors but is also having manifestations of her schizophrenia for which she needs medication management. Given her current symptoms she is a danger to herself and unable to take care of herself so she will be admitted to psychiatry for management. We will start Haloperidol 5mg PO daily and hold the Seroquel due to no clear benefit of 2 antipsychotics at low doses in this moment.
[2018-10-05] MEDS ORDERED: Bisacodyl 10 MG Supp RECTAL PRN (12:35)
[2018-10-05] MEDS ORDERED: Aluminum/Magnesium/Simethacone Susp 30 ML UDC PO PRN (12:35)
--- NOTE | 2018-10-05 13:47 | P.HPPSY ---
Provisional Diagnosis Admission Date: October 05, 2018 12:45 Morgan I.: Schizophrenia Competence Certification of Person's Competence To Provide Express and Informed Consent I have personally examined Paula Palacios, a person being served at [facility] on, October 05, 2018 1342. Express and informed consent means consent voluntarily given in writing, by a competent person, after sufficient explanation and disclosure of the subject matter involved to enable the person to make a knowing and willful decision without any element of force, fraud, deceit, duress, or other form of constraint or coercion. This person is 18 years of age or older, is not now known to be incompetent to consent to treatment with a guardian advocate, and does not have a health care surrogate or proxy currently making medical treatment decisions. I have found this person to be one of the following: [] Competent to provide express and informed consent, as defined above, for voluntary admission to this facility and is competent to provide express and informed consent for treatment. He/she has the consistent capacity to make well reasoned, willful, and knowing decisions concerning his or her medical or mental health treatment. The person fully and consistently understands the purpose of the admission for examination/placement and is fully capable of personally exercising all rights assured under [place] [] Incompetent to provide express and informed consent to voluntary admission, and this is incompetent to provide express and informed consent to treatment. The person must be transferred to involuntary status and a petition for a guardian advocate filed with the Circuit Court. [x] Refusing to provide express and informed consent to voluntary admission but is competent to provide express and informed consent for treatment. The person must be discharged or transferred to involuntary status. Form shall be completed within 24 hours of a person's arrival at the receiving facility and filed in the clinical record of each person: 1. Admitted on a voluntary basis 2. Permitted to provide express and informed consent to his/her own treatment 3. Allowed to transfer from involuntary to voluntary status 4. Prior to permitting a person to consent to his or her own treatment after having been previously found incompetent to consent to treatment. History of Present Illness Capacity: Has capacity History of Present Illness: Note was written by Sabino Weiss, reviewed and edited b aliyah kelley The patient is a 63 y/o woman with a psychiatric history of schizophrenia and bipolar disorder, a medical history of hypothyroidism and colon cancer, domiciled in [place] with her in an apartment, has 1 older kid, is unemployed, has had 2 previous suicide attempts, 8 previous psychiatric admissions, has an outpatient psychiatrist, and is treated with Seroquel 50 and Haldol 5 for schizophrenia. She was recently diagnosed with colon cancer and has been experiencing additional financial stress which has caused her to feel overwhelmed over the past month. She states that recently she has begun to have auditory hallucinations that are telling her "everyone in the world is evil" which have been making her feel stressed out and upset. This morning around 5am she decided to take 10 Seroquel pills to try and overdose because of feeling overwhelmed. Her called an ambulance which took her to the ED for treatment. She denies taking anything besides the Seroquel and says that she has been compliant with her medications. She is currently denying suicidal or homicidal ideations and says "I just feel very calm and tired". She says she has had trouble sleeping and low energy but has maintained a good appetite and interest in activities with her . On psychiatric evaluation she appears to be disorganized and disinterested in conversation, she appears very tired and speaks slowly with effort. She began to cry at one point when discussing how she was feeling and wanted to see her . - Jame: [phone] Psychiatric history: diagnosed with schizophrenia and bipolar disorder, treated with Haldol and Seroquel, she was recently admitted at [place] and has 7 other previous admissions overall, she has attempted suicide 2 previous times with pills. Medical History:hypothyroidism, colon cancer, GERD Medications: levothyroxine 88micrograms, PO Daily, Haloperidol 5mg PO BID, Seroquel PO Daily Social History: The patient is not employed and relies on her for support. They live together in an apartment and have a grown son that does not live in town. Her highest level of education is college an she denies ever being incarcerated. Substance History: She denies using any tobacco, recreational drugs, or alcohol. - Inpatient Certification I certify that the inpatient services were ordered in accordance with Medicare regulations governing the order. This includes certification that hospital inpatient services are reasonable and necessary and in the case of services not specified as inpatient-only under 42 CFR 419.22(n), that they are appropriately provided as inpatient services in accordance to with the 2-midnight benchmark under 43 CFR 412.3(e) I certify that inpatient psychiatric hospital services are medically necessary. Evaluation and treatment and/or diagnostic testing are expected to improve the patient's condition. The patient needs on a daily basis, active treatment furnished directly by or requiring the supervision of inpatient psychiatric facility personnel. Estimated Total Length of Stay (Days): 7 Plans for Post Hospital Care: Home Review of Systems All other systems reviewed negative except as stated in HPI Psychiatric: Reports depression, Reports hopelessness, Reports irritability, Reports thoughts of hurting/killing yourself PMFSH - History History Provided By: Patient - Medical History Medical History: Medical History (Last Reviewed 10/05/18 @ 08:10 by Tricia Quinn) Bipolar 1 disorder Depressed affect GERD (gastroesophageal reflux disease) Hemorrhoids Schizo affective schizophrenia Thyroid disease - Surgical History Surgical History: Surgical History (Last Reviewed 10/05/18 @ 08:10 by Tricia Quinn) No history of previous surgery - Tobacco History Second Hand Smoke Exposure: No Smoking Status: Never smoker Tobacco Type: Cigarettes - Alcohol History How Often Do You Have a Drink Containing Alcohol: Never - Substance Use History Substance History: No History of Abuse - Travel History Recent Travel in the [place] Within the Last 8 Weeks: No Recent Travel Out of the Country Within the Last 8 Weeks: No - Immunization History Tetanus Immunization: <5 Years Medications and Allergies Active Medications: Active Medications Al Hydrox/Mg Hydrox/Simethicone (Mag-Al Plus Susp Liq) 30 ml PO Q6H PRN PRN Reason: DYSPEPSIA Al Hydroxide/Mg Hydroxide (Milk Of Magnesia Liq) 30 ml PO Q12H PRN PRN Reason: Mild Constipation Bisacodyl (Dulcolax Supp) 10 mg RECTAL DAILY PRN PRN Reason: SEVERE CONSITIPATION Lactulose (Lactulose Liq) 30 ml PO DAILY PRN PRN Reason: SEVERE CONSITIPATION Senna/Docusate Sodium (Christiana-Colace) 1 tab PO BID SARAH Sennosides (Senokot) 17.2 mg PO Q12H PRN PRN Reason: Moderate Constipation Allergies Allergy/AdvReac Type Severity Reaction Status Date / Time amoxicillin Allergy Mild Shortness Verified 10/05/18 07:56 of Breath Home Medications Medication Instructions Recorded Confirmed Type levothyroxine 88 mcg PO DAILY 08/09/18 10/05/18 History buspirone 10 mg PO BID 10/05/18 10/05/18 History quetiapine [Seroquel] 50 mg PO BID 10/05/18 10/05/18 History Results - Labs CBC & Chem 7: 10/05/18 08:04 10/05/18 08:04 Labs: Laboratory Results - last 24 hr 10/05/18 10/05/18 10/05/18 08:04 08:04 08:04 WBC 4.9 RBC 3.99 L Hgb 10.6 L Hct 31.8 L MCV 79.9 L MCH 26.6 L MCHC 33.3 RDW 15.6 Plt Count 256 MPV 7.9 Neut % (Auto) 75.9 H Lymph % (Auto) 12.1 [place] % (Auto) 9.3 H Eos % (Auto) 2.3 Baso % (Auto) 0.4 Neut # (Auto) 3.7 Lymph # (Auto) 0.6 L [place] # (Auto) 0.5 Eos # (Auto) 0.1 Baso # (Auto) 0.0 WBC Differential . Differential Comment Auto diff final Sodium 133 L Potassium 3.1 L Chloride 100 Carbon Dioxide 22.7 Anion Gap 10 BUN 5 L Creatinine 0.49 L Estimated GFR Greater than 89 Random Glucose 118 H Calcium 8.6 Magnesium 1.8 Total Bilirubin 0.5 AST 18 ALT 15 Alkaline Phosphatase 123 H Total Protein 6.5 Albumin 3.0 L TSH 2.120 Salicylates Less than 1.7 L Urine Opiates Screen Acetaminophen 2.2 L Ur Barbiturates Screen Ur Amphetamines Screen U Benzodiazepines Scrn Urine Cocaine Screen U Cannabinoids Screen Serum Alcohol Less than 3 10/05/18 09:22 WBC RBC Hgb Hct MCV MCH MCHC RDW Plt Count MPV Neut % (Auto) Lymph % (Auto) [place] % (Auto) Eos % (Auto) Baso % (Auto) Neut # (Auto) Lymph # (Auto) [place] # (Auto) Eos # (Auto) Baso # (Auto) WBC Differential Differential Comment Sodium Potassium Chloride Carbon Dioxide Anion Gap BUN Creatinine Estimated GFR Random Glucose Calcium Magnesium Total Bilirubin AST ALT Alkaline Phosphatase Total Protein Albumin TSH Salicylates Urine Opiates Screen Neg Acetaminophen Ur Barbiturates Screen Neg Ur Amphetamines Screen Neg U Benzodiazepines Scrn Neg Urine Cocaine Screen Neg U Cannabinoids Screen Neg Serum Alcohol Exam Vital signs: Vital Signs 10/05/18 08:03 10/05/18 08:14 10/05/18 08:54 Temperature 97.7 F Pulse Rate 113 H 120 H Respiratory Rate 21 21 Blood Pressure 103/66 153/65 H Pulse Oximetry 95 95 10/05/18 09:41 10/05/18 10:40 10/05/18 12:21 Temperature Pulse Rate 100 H 96 H 94 H Respiratory Rate 14 18 17 Blood Pressure 140/72 142/77 H 148/72 H Pulse Oximetry 95 98 98 Intake & Output 10/04/18 10/05/18 10/05/18 18:59 06:59 18:59 Intake Total 1999 Balance 1999 Weight 87.09 kg Intake: IV 1999 NS Inj 1,000 ML @ 1000 mls/hr 1999 IV.SIG BOLUS SARAH Rx#:[id number] Mental Status Examination Appearance: Disheveled Consciousness: Alert Orientation: x4 Motor Activity: Normal gait Speech: Slow Language: Adequate Fund of Knowledge: Adequate Attention and Concentration: Adequate Memory: Unremarkable Mood: Sad Affect: Sad Thought Process & Associations: Disorganized Thought Content: Appropriate Hallucination Type: Visual Delusion Type: None Suicidal Ideation: No Suicidal Plan: No Suicidal Intention: No Homicidal Ideation: No Homicidal Plan: No Homicidal Intention: No Insight: Poor Judgment: Poor Assessment and Plan - Assessment (1) Schizophrenia, unspecified Code(s): F20.9 - Schizophrenia, unspecified Status: Acute - Plan Plan: The patient is a 63 y/o woman with a psychiatric history of schizophrenia and bipolar disorder, a medical history of hypothyroidism and colon cancer, has had 2 previous suicide attempts, 8 previous psychiatric admissions, has an outpatient psychiatrist, and is treated with Seroquel and Haloperidol for schizophrenia. This morning she was hearing voices which contributed to her feeling overwhelmed and she decided to try and commit suicide by taking 10 of her Seroquel pills. Her found her and called 911 and she was medically treated and cleared in the ED. She no longer feels suicidal but feels very tired and sick of the voices she is hearing. The patient was disorganized and depressed on exam. The patient has many life stressors but is also having manifestations of her schizophrenia for which she needs medication management. Given her current symptoms she is a danger to herself and unable to take care of herself so she will be admitted to psychiatry for management. We will start Haloperidol 5mg PO daily and hold the Seroquel due to no clear benefit of 2 antipsychotics at low doses in this moment. Transfer to . [facility] intervention for psychosocial assessment , individual and group therapies, collateral information and to coordinate safe discharge. Justification for Continued Inpatient Stay: To be admitted in psychiatry
[2018-10-05] MEDS: Senna/Docusate Sodium 8.6/50 MG Tablet PO SCH (20:03)
[2018-10-06] MEDS: Senna/Docusate Sodium 8.6/50 MG Tablet PO SCH ×2 (08:01→21:04)
[2018-10-06 09:07] LABS: Anion Gap 6 meq/L (5-15); Blood Urea Nitrogen 4 mg/dL (7-18); Calcium 8.5 mg/dL (8.5-10.1); Carbon Dioxide 24.9 meq/L (21.0-32.0); Chloride 106 meq/L (98-107); Glomerular Filtration Rate Greater Than 89 mL/min (>89); Glucose,Random 132 mg/dL (74-106); Potassium 3.8 meq/L (3.5-5.1); Sodium 137 meq/L (136-145)
[2018-10-06 09:08] LABS: Cholesterol 150 mg/dL (120-200); Triglycerides 37 mg/dL (42-150)
[2018-10-06 09:11] LABS: LDL Cholesterol,Calculated 60 mg/dL (0-99)
--- NOTE | 2018-10-06 11:27 | P.PNPSY ---
Subjective Remarks: Patient seen for follow-up, chart reviewed. Discussion with nursing staff reported that patient last night had been calling the nurse called multiple times and was noted to be yelling and talking to self at night. Patient was found lying in hospital bed, cooperative. Patient states that she been having auditory hallucinations that have been ongoing since her discharge from her last admission here in [facility] in August 2018. Patient states that she almost made to her appointment "I fell apart, all the voices". Patient states that they are a "zillions of them" referring to the auditory hallucinations stating not command in nature and states that they are worse in moments of excitement. Patient also endorsing hallucinations at time of interview. Patient reports having had difficulty with sleep prior to his admission for the past couple of nights, denying any paranoid delusions. Patient states she has difficulty recalling the amount of pills she took prior to admission but denies having had an overdose with an attempt to end her life stating "I never do that ". Patient denies any depressed mood at this time. Patient mentions "I cannot believe I miss Thais" stating that the voices keep telling her Ms. Plascencia. Review of Systems All other systems reviewed negative except as stated in HPI Mental Status Examination Appearance: Disheveled Consciousness: Alert Orientation: x4 Motor Activity: Normal gait Speech: Slow Language: Adequate Fund of Knowledge: Adequate Attention and Concentration: Adequate Memory: Unremarkable Mood: Anxious Affect: Anxious Thought Process & Associations: Disorganized (at times) Thought Content: Appropriate Hallucination Type: Auditory Delusion Type: None Suicidal Ideation: No Suicidal Plan: No Suicidal Intention: No Homicidal Ideation: No Homicidal Plan: No Homicidal Intention: No Insight: Poor Judgment: Poor Assessment and Plan - Assessment (1) Schizophrenia, unspecified Code(s): F20.9 - Schizophrenia, unspecified Status: Acute - Plan Plan: I have seen and examined this patient, reviewed the documentation, and I agree and concur with Dr. Ross assessment and plan. I have completed second opinion for the petition for involuntary hospitalization. Consult appreciated. Patient has capacity consent for treatment. We will start patient back on Haldol 5 mg p.o. twice daily, BuSpar 5 mg p.o. 3 times daily, benztropine 0.5 p.o. twice daily. We will continue to monitor mood and behavior. Discharge planning in progress. Justification for Continued Inpatient Stay: At risk of further decompensation at lower level care.
[2018-10-06] MEDS: Haloperidol 5 MG Tablet PO SCH ×2 (12:33→21:05)
[2018-10-06 15:55] LABS: Hemoglobin A1c 5.5 % (4.3-6.0)
[2018-10-06] MEDS ORDERED: Haloperidol Inj 5 MG/ML Ampul ONE (18:51)
[2018-10-06] MEDS ORDERED: Haloperidol Inj 5 MG/ML Ampul IM ONE (19:00)
--- NOTE | 2018-10-06 23:21 | ECG ---
Date Performed: 10/05/2018 Time Performed: 08:08:18 PTAGE: 63 years EKG: SINUS TACHYCARDIA WITH FREQUENT SUPRAVENTRICULAR PREMATURE COMPLEXES ABNORMAL RHYTHM ECG PREVIOUS TRACING : 09/16/2018 09.45 Compared to previous tracing, rate has increased DOCTOR: Mayito Hylton Interpretating Date/Time 10/06/2018 23:20:11
--- NOTE | 2018-10-06 23:27 | ECG ---
Date Performed: 10/05/2018 Time Performed: 10:06:02 PTAGE: 63 years EKG: Sinus rhythm WITH SINUS ARRHYTHMIA NORMAL ECG PREVIOUS TRACING : 10/05/2018 08.08 Compared to previous tracing, rate has decreased DOCTOR: Mayito Hylton Interpretating Date/Time 10/06/2018 23:26:10
[2018-10-07] MEDS: Levothyroxine 88 MCG Tablet PO SCH (05:18)
[2018-10-07] MEDS: Senna/Docusate Sodium 8.6/50 MG Tablet PO SCH ×2 (08:58→21:19)
[2018-10-07] MEDS: Haloperidol 5 MG Tablet PO SCH (08:58)
--- NOTE | 2018-10-07 16:02 | P.PNPSY ---
Subjective Remarks: Patient seen for follow-up, chart reviewed. Discussion with nursing staff reported that patient was noted to be hypersexual last evening, disrobing and masturbating upon visit with her but has been calm this morning. Patient was found lying in hospital bed, cooperative, stated she is feeling "wonderful" reporting sleeping well, her mood has been "great" stating that her thoughts have left her head referring to "the ones that were doing the crazy" likely referring to auditory hallucinations which he states no longer is experiencing. She recalls visit with which they spoke about her recent shopping spree which she has been about $600 in [place] [employer]. Review of Systems All other systems reviewed negative except as stated in HPI Mental Status Examination Appearance: Disheveled Consciousness: Alert Orientation: x4 Motor Activity: Normal gait Speech: Slow Language: Adequate Fund of Knowledge: Adequate Attention and Concentration: Adequate Memory: Unremarkable Mood: Other ("wonderful!") Affect: Other (elated) Thought Process & Associations: Disorganized (slightly less) Thought Content: Appropriate Hallucination Type: Auditory Delusion Type: None Suicidal Ideation: No Suicidal Plan: No Suicidal Intention: No Homicidal Ideation: No Homicidal Plan: No Homicidal Intention: No Insight: Poor Judgment: Impulsive Assessment and Plan - Assessment (1) Schizophrenia, unspecified Code(s): F20.9 - Schizophrenia, unspecified Status: Acute - Plan Plan: Patient continues to have labile mood, noted to be with continued hypersexual last evening, as well as related mood which patient was not disrobing and masturbating last night. We will continue to increase Haldol to address psychosis and mood symptoms to 5 mg a.m./10 mg at bedtime. Continue rest of medications. Continue to monitor mood and behavior. Continue to encourage patient to participate in groups and activities as well as maintain personal hygiene while on the unit. Discharge planning in progress. Justification for Continued Inpatient Stay: At risk of further decompensation at lower level care.
[2018-10-07 18:51] VITALS: O2SAT 96
--- NOTE | 2018-10-07 21:35 | ECG ---
Date Performed: 10/07/2018 Time Performed: 20:07:24 PTAGE: 63 years EKG: Sinus rhythm LOW QRS VOLTAGE IN PRECORDIAL LEADS BORDERLINE ECG No significant change from prior EKG. PREVIOUS TRACING : 10/05/2018 10.06 DOCTOR: Tunde Maynard Interpretating Date/Time 10/07/2018 21:34:54
[2018-10-08 05:57] VITALS: BP 107/57; PULSE 76; RESP 16; TEMP 97.8
[2018-10-08] MEDS: Levothyroxine 88 MCG Tablet PO SCH (06:18)
[2018-10-08] MEDS ORDERED: Haloperidol 5 MG Tablet PO SCH (09:00)
--- NOTE | 2018-10-08 09:01 | P.PNPSY ---
Subjective Remarks: Patient seen for follow-up, chart reviewed. Discussion with nursing staff reported that patient continued to endorse auditory hallucinations, no behavioral. Patient was found sitting in hospital bed and noted to have removed that she is from the bed and asking if her sheets could be changed. Patient continues to be noted to be somewhat elated at times, states she has slept well, her mood is "good", eating and drinking well, denying any physical complaints at this time. Patient denies any auditory hallucinations, denies any racing thoughts at this time. She reports having visited by her which she states went well. Discussion of her having taken more than prescribed amounts of quetiapine was reviewed again with patient and continue denying any suicide ideation or suicide attempts stated that she wanted to "get rid of the voices". Review of Systems All other systems reviewed negative except as stated in HPI Mental Status Examination Appearance: Appropriate Consciousness: Alert Orientation: x4 Motor Activity: Normal gait Speech: Unremarkable Language: Adequate Fund of Knowledge: Adequate Attention and Concentration: Adequate Memory: Unremarkable Mood: Other ("wonderful!") Affect: Labile (lessening) Thought Process & Associations: Linear Thought Content: Appropriate Hallucination Type: None Delusion Type: None Suicidal Ideation: No Suicidal Plan: No Suicidal Intention: No Homicidal Ideation: No Homicidal Plan: No Homicidal Intention: No Insight: Poor Judgment: Impulsive Assessment and Plan - Assessment (1) Schizophrenia, unspecified Code(s): F20.9 - Schizophrenia, unspecified Status: Acute - Plan Plan: Patient noted with improved mood, denying any perceptual disturbances. Patient denying any racing thoughts at this time. We will continue to monitor mood and behavior. Will reach out to as patient appears to be at baseline and possible discharge today. Discharge planning in progress. Justification for Continued Inpatient Stay: At risk of further decompensation at lower level care.
[2018-10-08] MEDS: Senna/Docusate Sodium 8.6/50 MG Tablet PO SCH (09:33)
--- NOTE | 2018-10-08 13:43 | P.DSPSY ---
Psychiatry Discharge Summary Inpatient Psychiatric care?: Yes Advance Directives: No Mental Health Advance Directive: No Health Care Proxy: No - Admission Admission Date: October 05, 2018 12:45 - Admission Diagnosis (1) Schizophrenia, unspecified Code(s): F20.9 - Schizophrenia, unspecified Brief History: Note was written by Sabino Weiss, reviewed and edited b aliyah kelley The patient is a 63 y/o woman with a psychiatric history of schizophrenia and bipolar disorder, a medical history of hypothyroidism and colon cancer, domiciled in [place] with her in an apartment, has 1 older kid, is unemployed, has had 2 previous suicide attempts, 8 previous psychiatric admissions, has an outpatient psychiatrist, and is treated with Seroquel 50 and Haldol 5 for schizophrenia. She was recently diagnosed with colon cancer and has been experiencing additional financial stress which has caused her to feel overwhelmed over the past month. She states that recently she has begun to have auditory hallucinations that are telling her "everyone in the world is evil" which have been making her feel stressed out and upset. This morning around 5am she decided to take 10 Seroquel pills to try and overdose because of feeling overwhelmed. Her called an ambulance which took her to the ED for treatment. She denies taking anything besides the Seroquel and says that she has been compliant with her medications. She is currently denying suicidal or homicidal ideations and says "I just feel very calm and tired". She says she has had trouble sleeping and low energy but has maintained a good appetite and interest in activities with her . On psychiatric evaluation she appears to be disorganized and disinterested in conversation, she appears very tired and speaks slowly with effort. She began to cry at one point when discussing how she was feeling and wanted to see her . - Jame: [phone] Psychiatric history: diagnosed with schizophrenia and bipolar disorder, treated with Haldol and Seroquel, she was recently admitted at [facility] and has 7 other previous admissions overall, she has attempted suicide 2 previous times with pills. Medical History:hypothyroidism, colon cancer, GERD Medications: levothyroxine 88micrograms, PO Daily, Haloperidol 5mg PO BID, Seroquel PO Daily Social History: The patient is not employed and relies on her for support. They live together in an apartment and have a grown son that does not live in town. Her highest level of education is college an she denies ever being incarcerated. Substance History: She denies using any tobacco, recreational drugs, or alcohol. Tobacco Use In Past 30 Days: No How Often Do You Have a Drink Containing Alcohol: Never Hospital Course: The patient is a 63 y/o woman with a psychiatric history of schizophrenia and bipolar disorder, a medical history of hypothyroidism and colon cancer, domiciled in [place] with her in an apartment, has 1 older kid, is unemployed, has had 2 previous suicide attempts, 8 previous psychiatric admissions, has an outpatient psychiatrist, and is treated with Seroquel and Haldol for schizophrenia which patient was admitted to the inpatient psychiatry unit for further evaluation and management. Patient was admitted to a locked, inpatient psychiatric unit. Appropriate precautions were in place throughout patient's hospital stay. Patient was seen and examined on the unit by psychiatry. Psychotropic medications were adjusted. There was no evidence of any suicidality or homicidality on the inpatient unit. Patient's mood improved with the benefit of psychopharmacological treatment and had no behavioral disturbance since admission. Patient was noted to have reached stable mood, noted to participate and engage in treatment and interact with staff adequately. Patient noted to be future oriented with plans to continue treatment and outpatient follow-up appointments for continuity of care. Counselor has arranged discharge plan which patient will return back to her residence and patient's with no safety concerns regarding her discharge. On the day of discharge: Patient seen and examined; chart reviewed. Case discussed with nurse and counselor. No behavioral issues overnight. On my examination today, the patient denies any suicidal homicidal ideation, intent or plan on direct questioning and contracts for safety. Patient denies any perceptional disturbances and no delusional material verbalized today. Patient denies any side effects from medication and has understanding of medication regimen and education. No physical complaints. Suicide and violence risk assessment on day of discharge both suggest lower imminent risk, and the patient's level of function is adequate for plan level of outpatient care. Patient has maximized benefit from this inpatient psychiatric hospital stay and will be discharged with discharge plan as arranged by counselor. Patient advised to return to psychiatric emergency room for any concerning psychiatric symptoms. Patient agrees with plan. - Discharge Discharge Date: 10/08/18 Discharge Disposition: Home - Discharge Instructions Discharge Diet: Heart Healthy Diet Activities You Can Perform: Regular- No Restrictions - Discharge Time > 30 minutes Mental Status Examination Appearance: Appropriate Consciousness: Alert Orientation: x4 Motor Activity: Normal gait Speech: Unremarkable Language: Adequate Fund of Knowledge: Adequate Attention and Concentration: Adequate Memory: Unremarkable Mood: Appropriate Affect: Appropriate Thought Process & Associations: Intact Thought Content: Appropriate Hallucination Type: None Delusion Type: None Suicidal Ideation: No Suicidal Plan: No Suicidal Intention: No Homicidal Ideation: No Homicidal Plan: No Homicidal Intention: No Insight: Fair Judgment: Impulsive Discharge/Advance Care Plan - Results Vital Signs: Last Vital Signs Temp 97.8 F 10/08/18 05:56 Pulse 76 10/08/18 05:56 Resp 16 10/08/18 05:56 BP 107/57 L 10/08/18 05:56 Pulse Ox 96 10/08/18 05:56 Lab Results: Laboratory Results Hemoglobin A1c 5.5 % (4.3-6.0) 10/06/18 08:25 Triglycerides 37 mg/dL (42-150) L 10/06/18 08:25 Cholesterol 150 mg/dL (120-200) 10/06/18 08:25 LDL Cholesterol, Calc 60 mg/dL (0-99) 10/06/18 08:25 HDL Cholesterol 83.0 mg/dL (40.0-60.0) H 10/06/18 08:25 TSH 2.120 uIU/mL (0.358-3.740) 10/05/18 08:04 Summary of Procedures: none Pending Results: None - Medications Number of antipsychotic medications at discharge: 1 - Discharge Care Plan Goals to Promote Your Health: * To prevent worsening of your condition and complications * To maintain your health at the optimal level Directions to Meet Your Goals: Take your medications as prescribed Follow your dietary instruction Follow activity as directed Keep your appointments as scheduled Take your immunizations and boosters as scheduled If your symptoms worsen call your PCP, if no PCP go to Urgent Care Center or Emergency Room For 24/ questions related to your inpatient stay or results of tests pending at discharge, please contact Dr. Kailash Covington MD at Smoking is Dangerous to Your Health. Avoid second hand smoking
== END 2018-10-08 14:30 | disposition home or self-care (01) | DRG 885 ==
LOC: NEPE 07:47 → NEDA 12:45 → H4EA 16:12
PROVIDERS: ADMIT Student in an Organized Health Care Education/Training Program; ATTEND Student in an Organized Health Care Education/Training Program
CPT/HCPCS: 80048; 80053; 80061; 80307; 83036; 83735; 84443; 85025; 90760; 93005; 96360; 99285; J1630; J2060; J7030